=== PATIENT | male | born 1995 | race American Indian/Alaskan Native ===

== ENCOUNTER 2019-02-13 18:22 | Emergency (ER) | payer OTHER ==
[2019-02-13 20:15] VITALS: BP 136/82
--- NOTE | 2019-02-13 20:16 | Event Note ---
ED Screening Note Date of service: 02/13/19 Time: 20:14 ED Screening Note: Pt complains of lower abdominal pain x 2 days right sided denies other symptoms This initial assessment/diagnostic orders/clinical plan/treatment(s) is/are subject to change based on patients health status, clinical progression and re- assessment by fellow clinical providers in the ED. Further treatment and workup at subsequent clinical providers discretion. Patient/guardian urged not to elope from the ED as their condition may be serious if not clinically assessed and managed. Initial orders include: CT labs
== END 2019-02-14 01:44 | disposition left against medical advice (07) ==
LOC: ED 18:22
DX: R10.9 Unspecified abdominal pain (principal); Z53.21 Procedure and treatment not carried out due to patient leaving prior to being seen by health care provider